=== PATIENT | female | born 1970 | race Caucasian/White ===

== ENCOUNTER 2017-12-10 07:15 | Day surgery (SDC) | payer OTHER ==
[2017-12-10] MEDS ORDERED: LIDOCAINE 4% SOLUTION 50 ML BTL (09:14)
[2017-12-10] MEDS ORDERED: MIDAZOLAM 1 MG/ML 2 ML INJ ×2 (09:59)
[2017-12-10] MEDS ORDERED: FENTAnyl 50 MCG/ML VIAL (09:59)
== END 2017-12-10 12:55 | disposition home or self-care (01) ==
LOC: GIL 07:15
DX: K29.50 Unspecified chronic gastritis without bleeding (principal); K21.0 Gastro-esophageal reflux disease with esophagitis; I10 Essential (primary) hypertension
CPT/HCPCS: 43239; 84703; 88305; 88312; 88313